=== PATIENT | female | born 2000 | race Caucasian/White ===

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

== ENCOUNTER 2020-08-18 22:18 | Emergency (ER) | payer MEDICAID ==
--- NOTE | 2020-08-19 00:01 | ED Physician Documentation ---
PD HPI FEMALE - Stated complaint Stated Complaint: FEMALE - Chief complaint Chief Complaint: Abd Pain - History obtained from History obtained from: Patient - History of Present Illness Timing - onset: How many days ago (2) Timing - details: Gradual onset, Waxing and waning Pain level max: 7 Associated symptoms: Back pain, Pelvic pain. No: Fever Similar symptoms before: No diagnosis Recently seen: Emergency Dept - Additional information Additional information: patient c/o 2 days of waxing and waning pelvic pain across pelvis anteriorly. she also c/o one week of episodes of urinary incontinence as well as right LBP and numbness that radiates down her RLE. She says she was evaluated in an ED in [place] on 08/08 and again 08/11 for these symptoms (did not have pelvic pain at that time) and w/u including UA, blood tests, and MRI of lower back were unremarkable. She has appointment with local PMD scheduled for this coming Thursday Review of Systems Constitutional: denies: Fever, Chills, Sweats : reports: Incontinent. denies: Dysuria, Frequency, Now EGA Skin: denies: Rash Musculoskeletal: reports: Back pain Neurologic: reports: Numbness (RLE), Headache ("every day" (per patient) for 1-2 weeks). denies: Generalized weakness, Focal weakness PD PAST MEDICAL HISTORY - Past Medical History Past Medical History: Yes [facility]: Ovarian cysts Psych: Depression, Anxiety - Past Surgical History Past Surgical History: Yes General: Appendectomy /[facility]: Oophrectomy - Present Medications Home Medications: Ambulatory Orders Medication Instructions Recorded Confirmed Azithromycin [Zithromax] 250 mg PO DAILY #6 tablet 09/29/15 Buspirone HCl 10 mg PO DAILY 09/29/15 09/29/15 clonazePAM [KlonoPIN] 0.5 mg PO DAILY PRN 09/29/15 09/29/15 Albuterol 2.5 mg INH Q4H PRN #30 neb 10/22/17 Azithromycin [Zithromax] 250 mg PO DAILY #4 tablet 10/22/17 Ibuprofen [Motrin] 800 mg PO Q8H PRN #30 tablet 10/22/17 Mupirocin 1 gm TP BID #22 gm 09/03/19 - Allergies Allergies/Adverse Reactions: Allergies Allergy/AdvReac Type Severity Reaction Status Date / Time Penicillins Allergy Mild Rash Verified 08/18/20 22:22 hydromorphone HCl * AdvReac Mild Anxiety Verified 08/18/20 22:22 [From Dilaudid] acetaminophen AdvReac Nausea Verified 08/18/20 22:21 [From Tylenol-Codeine #3] codeine AdvReac Nausea Verified 08/18/20 22:21 [From Tylenol-Codeine #3] - Social History Does the pt smoke?: No Smoking Status: Never smoker Does the pt drink ETOH?: No Does the pt have substance abuse?: No - Immunizations Immunizations are current?: Yes - POLST Patient has POLST: No PD ED PE NORMAL - Vitals Vital signs reviewed: Yes - General General: Alert and oriented X 3, No acute distress, Well developed/nourished - HEENT HEENT: PERRL, EOMI, Moist mucous membranes - Cardiac Cardiac: RRR, No murmur - Respiratory Respiratory: No respiratory distress, Clear bilaterally - Abdomen Abdomen: Soft, Non tender - Back Back: No CVA TTP, No spinal TTP - Derm Derm: Normal color, No rash - Extremities Extremities: No tenderness to palpate, Normal ROM s pain, No edema - Neuro Neuro: Alert and oriented X 3, 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, No motor deficit, No sensory deficit, Normal speech, Other (2+/4 bilateral patellar DTR without clonus) Eye Opening: Spontaneous Motor: Obeys Commands Verbal: Oriented GCS Score: 15 Results - Vitals Vitals: Oxygen O2 Source Room air - Labs Labs: Laboratory Tests 08/18/20 08/19/20 08/19/20 22:40 00:30 00:30 WBC 9.1 RBC 5.52 H Hgb 14.9 Hct 46.3 MCV 83.9 MCH 27.0 MCHC 32.2 RDW 13.3 Plt Count 280 MPV 11.4 H Neut # (Auto) 4.6 Lymph # (Auto) 3.5 [place] # (Auto) 0.7 Eos # (Auto) 0.1 Baso # (Auto) 0.1 Absolute Nucleated RBC 0.00 Nucleated RBC % 0.0 Sodium 138 Potassium 3.7 Chloride 105 Carbon Dioxide 24 Anion Gap 9.0 BUN 9 Creatinine 0.7 Estimated GFR (MDRD) 108 Glucose 93 Calcium 9.5 Total Bilirubin 0.5 AST 23 ALT 41 Alkaline Phosphatase 52 Total Protein 7.9 Albumin 4.4 Globulin 3.5 Albumin/Globulin Ratio 1.3 Lipase 27 Serum HCG, Qual Urine Color YELLOW Urine Clarity CLEAR Urine pH 7.5 Ur Specific [place] 1.015 Urine Protein NEGATIVE Urine Glucose (UA) NEGATIVE Urine Ketones NEGATIVE Urine Occult Blood TRACE-INTA Urine Nitrite NEGATIVE Urine Bilirubin NEGATIVE Urine Urobilinogen 0.2 (NORMAL) Ur Leukocyte Esterase NEGATIVE Ur Microscopic Review NOT INDICATED Urine Culture Comments NOT INDICATED Urine HCG, Qual NEGATIVE 08/19/20 00:30 WBC RBC Hgb Hct MCV MCH MCHC RDW Plt Count MPV Neut # (Auto) Lymph # (Auto) [place] # (Auto) Eos # (Auto) Baso # (Auto) Absolute Nucleated RBC Nucleated RBC % Sodium Potassium Chloride Carbon Dioxide Anion Gap BUN Creatinine Estimated GFR (MDRD) Glucose Calcium Total Bilirubin AST ALT Alkaline Phosphatase Total Protein Albumin Globulin Albumin/Globulin Ratio Lipase Serum HCG, Qual NEGATIVE Urine Color Urine Clarity Urine pH Ur Specific [place] Urine Protein Urine Glucose (UA) Urine Ketones Urine Occult Blood Urine Nitrite Urine Bilirubin Urine Urobilinogen Ur Leukocyte Esterase Ur Microscopic Review Urine Culture Comments Urine HCG, Qual - Rads (name of study) CT head Radiology: Prelim report reviewed, See rad report CT A/P Radiology: Prelim report reviewed, See rad report PD MEDICAL DECISION MAKING - ED course Complexity details: reviewed results, re-evaluated patient, considered differential, d/w patient Departure - Departure Disposition: 01 Home, Self Care Clinical Impression: Pelvic pain Condition: Good Instructions: ED Pelvic Pain [facility] Follow-Up: Jessica Cross MD [Primary Care Provider] - Discharge Date/Time: 08/19/20 04:50
[2020-08-19 00:36] LABS: BASOPHILS # (AUTO) 0.1 10^3/uL (0.0-0.1); EOSINOPHILS # (AUTO) 0.1 10^3/uL (0.0-0.7); EOSINOPHILS % (AUTO) 1.5 %; HGB - HEMOGLOBIN 14.9 g/dL (12.0-16.0); LYMPHOCYTES # (AUTO) 3.5 10^3/uL (1.5-3.5); LYMPHOCYTES % (AUTO) 38.1 %; MEAN CORPUSCULAR HGB CONC 32.2 g/dL (32.0-36.0); MEAN CORPUSCULAR VOLUME 83.9 fL (81.0-99.0); MEAN PLATELET VOLUME 11.4 fL (7.9-10.8); MONOCYTES # (AUTO) 0.7 10^3/uL (0.0-1.0); MONOCYTES % (AUTO) 7.9 %; NEUTROPHILS # (AUTO) 4.6 10^3/uL (1.5-6.6); NEUTROPHILS % (AUTO) 50.8 %; PLT - PLATELET COUNT 280 10^3/uL (130-450); RED BLOOD COUNT 5.52 10^6/uL (4.20-5.40); RED CELL DISTRIBUTION WIDTH 13.3 % (12.0-15.0); WHITE BLOOD COUNT 9.1 x10^3/uL (4.8-10.8)
[2020-08-19] MEDS ORDERED: IOVERSOL 320 100 ML VIAL IVP ONE ×2 (01:03→03:15)
[2020-08-19 01:06] LABS: ALBUMIN 4.4 g/dL (3.2-5.5); ALBUMIN/GLOBULIN RATIO 1.3 (1.0-2.2); BILIRUBIN,TOTAL 0.5 mg/dL (0.2-1.0); CALCIUM 9.5 mg/dL (8.5-10.3); CREATININE 0.7 mg/dL (0.4-1.0); TOTAL PROTEIN 7.9 g/dL (6.7-8.2)
[2020-08-19 01:28] LABS: HCG,QUALITATIVE BLOOD NEGATIVE
[2020-08-19 04:31] LABS: BILIRUBIN,URINE NEGATIVE (NEGATIVE); CLARITY,URINE CLEAR (CLEAR); GLUCOSE, URINE (UA) NEGATIVE (NEGATIVE); KETONES,URINE (UA) NEGATIVE (NEGATIVE); LEUKOCYTE ESTERASE, URINE NEGATIVE (NEGATIVE); NITRITE,URINE NEGATIVE (NEGATIVE); OCCULT BLOOD,URINE TRACE-INTA (NEGATIVE); PH,URINE 7.5 PH (5.0-7.5); PROTEIN,URINE NEGATIVE (NEGATIVE); UROBILINOGEN,URINE 0.2 (NORMAL) E.U./dL (NORMAL)
[2020-08-19 04:33] LABS: HCG UR QUAL NEGATIVE
[2020-08-19 04:51] VITALS: BP 119/75
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
--- NOTE | 2020-08-19 08:10 | CT Report ---
PROCEDURE: Abdomen/Pelvis W INDICATIONS: pelvic pain CONTRAST: IV CONTRAST: Optiray 320 ml: 100 PO CONTRAST: *NO PO CONTRAST TECHNIQUE: After the administration of IV contrast, 5 mm thick sections acquired from the diaphragms to the symp hysis. 5 mm thick coronal and sagittal reformats were acquired. For radiation dose reduction, the f ollowing was used: automated exposure control, adjustment of mA and/or kV according to patient size. COMPARISON: None. FINDINGS: Image quality: Excellent. ABDOMEN: Lung bases: Lung bases are clear. Heart size is normal. Tiny hiatal hernia. Solid organs: Mild hepatic steatosis. Liver and spleen are normal in size and enhancement. There is a 1.8 cm splenule. Gallbladder is normal. Biliary system is non dilated. Pancreas enhances normall y. No adrenal nodules. Kidneys demonstrate normal size and enhancement, without hydronephrosis. Peritoneum and bowel: Bowel loops demonstrate normal wall thickness and caliber. Moderate amount of stool in colon. Appendix is absent. No free fluid or air. Nodes and vessels: No retroperitoneal or mesenteric adenopathy by size criteria. Aorta and inferior vena cava are normal in size. Miscellaneous: No ventral hernias. PELVIS: Genitourinary: Bladder wall thickness is normal. Miscellaneous: No inguinal hernias or adenopathy. Bones: No suspicious bony lesions. No vertebral body compression fractures. IMPRESSION: No acute abnormalities in abdomen or pelvis. No significant discrepancy with the preliminary interpretation. Reviewed by: Ramone Yates MD on 08/19/2020 8:09 AM PST Approved by: Ramone Yates MD on 08/19/2020 8:09 AM PST Station ID: [id number]
== END 2020-08-19 04:50 | disposition home or self-care (01) ==
LOC: ED 22:18
DX: R10.2 Pelvic and perineal pain (principal); R32 Unspecified urinary incontinence; R51.9 Headache, unspecified; M54.5 Low back pain; R20.0 Anesthesia of skin
CPT/HCPCS: 36415; 70450; 74177; 80053; 81003; 81025; 83690; 84703; 85025; 99284; Q9967; 81001; 87086

== ENCOUNTER 2020-08-21 15:45 | Outpatient (CLI) | payer MEDICAID | END 2020-08-21 23:59 | disposition home or self-care (01) | LOC: LAB.R 15:45 | PROVIDERS: ATTEND Pediatrics | DX: R06.02 Shortness of breath (principal); Z20.828 Contact with and (suspected) exposure to other viral communicable diseases ==

== ENCOUNTER 2020-10-13 13:03 | Outpatient (CLI) | payer MEDICAID ==
[2020-10-13 13:45] LABS: BASOPHILS # (AUTO) 0.1 10^3/uL (0.0-0.1); BASOPHILS % (AUTO) 1.1 %; EOSINOPHILS # (AUTO) 0.1 10^3/uL (0.0-0.7); EOSINOPHILS % (AUTO) 1.4 %; HGB - HEMOGLOBIN 14.5 g/dL (12.0-16.0); LYMPHOCYTES # (AUTO) 2.5 10^3/uL (1.5-3.5); LYMPHOCYTES % (AUTO) 26.7 %; MEAN CORPUSCULAR HEMOGLOBIN 27.3 pg (27.0-31.0); MEAN CORPUSCULAR HGB CONC 32.2 g/dL (32.0-36.0); MEAN CORPUSCULAR VOLUME 84.6 fL (81.0-99.0); MEAN PLATELET VOLUME 11.1 fL (7.9-10.8); MONOCYTES # (AUTO) 0.5 10^3/uL (0.0-1.0); MONOCYTES % (AUTO) 5.9 %; NEUTROPHILS # (AUTO) 5.9 10^3/uL (1.5-6.6); NEUTROPHILS % (AUTO) 64.2 %; PLT - PLATELET COUNT 238 10^3/uL (130-450); RED BLOOD COUNT 5.32 10^6/uL (4.20-5.40); RED CELL DISTRIBUTION WIDTH 13.5 % (12.0-15.0); WHITE BLOOD COUNT 9.2 x10^3/uL (4.8-10.8)
[2020-10-13 14:14] LABS: ALBUMIN 4.1 g/dL (3.2-5.5); ALBUMIN/GLOBULIN RATIO 1.2 (1.0-2.2); ALKALINE PHOSPHATASE 61 IU/L (42-121); ALT ALANINE AMINOTRANSFERASE 56 IU/L (10-60); AST ASPARTATE AMINOTRANSFERASE 42 IU/L (10-42); BILIRUBIN,TOTAL 0.5 mg/dL (0.2-1.0); BUN - BLOOD UREA NITROGEN 9 mg/dL (6-20); CALCIUM 9.5 mg/dL (8.5-10.3); CARBON DIOXIDE - CO2 24 mmol/L (21-32); CHLORIDE 100 mmol/L (101-111); CHOL/HDL RATIO 4.7 (<4.4); CHOLESTEROL 199 mg/dL; CREATININE 0.6 mg/dL (0.4-1.0); GAMMA GLUTAMYL TRANSPEPTIDASE 41 IU/L (8-38); GFR - MDRD 129 (>89); GLUCOSE 115 mg/dL (70-100); HDL CHOLESTEROL 42 mg/dL; LDL CHOLESTEROL,CALCULATED 123 mg/dL; LDL/HDL RATIO 2.9 (<4.4); PHOSPHORUS 3.6 mg/dL (2.5-4.6); POTASSIUM 3.9 mmol/L (3.5-5.0); SODIUM 136 mmol/L (135-145); TOTAL PROTEIN 7.4 g/dL (6.7-8.2); TRIGLYCERIDES 169 mg/dL; URIC ACID 6.1 mg/dL (2.6-7.2); VLDL CHOLESTEROL 34 mg/dL
[2020-10-13 14:22] LABS: T4 (THYROXINE) 9.76 ug/dL (6.09-12.23)
[2020-10-13 14:22] LABS: BILIRUBIN,URINE NEGATIVE (NEGATIVE); GLUCOSE, URINE (UA) NEGATIVE (NEGATIVE); KETONES,URINE (UA) NEGATIVE (NEGATIVE); LEUKOCYTE ESTERASE, URINE NEGATIVE (NEGATIVE); NITRITE,URINE NEGATIVE (NEGATIVE); OCCULT BLOOD,URINE NEGATIVE (NEGATIVE); PROTEIN,URINE NEGATIVE (NEGATIVE); UROBILINOGEN,URINE 0.2 (NORMAL) E.U./dL (NORMAL)
[2020-10-13 14:23] LABS: CLARITY,URINE CLEAR (CLEAR)
[2020-10-13 14:25] LABS: THYROID STIMULATING HORMONE 2.22 uIU/mL (0.34-5.60)
[2020-10-13 14:27] LABS: FREE T3 4.03 pg/mL (2.5-3.9); FREE T4 (FREE THYROXINE) 0.81 ng/dL (0.58-1.64)
[2020-10-13 14:38] LABS: BACTERIA,URINE Moderate /HPF (None Seen); RBC,URINE 0-5 /HPF (0-5); SQUAMOUS EPITHELIAL CELL,UR MOD Squamous (<= Few); WBC,URINE 0-3 /HPF (0-5)
[2020-10-13 22:02] LABS: ESTIMATED AVERAGE GLUCOSE 111 mg/dL (70-100); HEMOGLOBIN A1c% 5.5 % (4.27-6.07)
[2020-10-16 17:52] LABS: THYROID PEROXIDASE ANTIBODIES <1 IU/mL (<9)
== END 2020-10-13 13:04 | disposition home or self-care (01) ==
LOC: LAB 13:03
PROVIDERS: ATTEND Pediatrics
DX: G44.52 New daily persistent headache (NDPH) (principal); N39.498 Other specified urinary incontinence
CPT/HCPCS: 36415; 80053; 80061; 81001; 82977; 83036; 83615; 83721; 84100; 84436; 84439; 84443; 84481; 84550; 85025; 86376; 86800

== ENCOUNTER 2021-09-19 00:30 | Outpatient (CLI) | payer MEDICAID | END 2021-09-19 00:31 | disposition critical access hospital (66) | LOC: EMS 00:30 | DX: Z04.1 Encounter for examination and observation following transport accident (principal); M25.531 Pain in right wrist | CPT/HCPCS: A0425; A0429; A0999 ==

== ENCOUNTER 2021-09-19 00:41 | Emergency (ER) | payer MEDICAID ==
[2021-09-19] MEDS ORDERED: KETOROLAC 30 MG/ML VIAL IM STA (03:56)
[2021-09-19 04:52] VITALS: BP 132/88
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
== END 2021-09-19 04:50 | disposition home or self-care (01) ==
LOC: ED 00:41
DX: S52.224A Nondisplaced transverse fracture of shaft of right ulna, initial encounter for closed fracture (principal); S39.012A Strain of muscle, fascia and tendon of lower back, initial encounter; S00.11XA Contusion of right eyelid and periocular area, initial encounter; M25.551 Pain in right hip; M25.552 Pain in left hip; V43.52XA Car driver injured in collision with other type car in traffic accident, initial encounter; W22.11XA Striking against or struck by driver side automobile airbag, initial encounter; Y92.410 Unspecified street and highway as the place of occurrence of the external cause
CPT/HCPCS: 96372; 99282; 99284

== ENCOUNTER 2021-11-07 10:50 | Outpatient (CLI) | payer MEDICAID ==
--- NOTE | 2021-11-07 14:49 | XRAY Report ---
PROCEDURE: Wrist 3 View RT INDICATIONS: WRIST FRACTURE TECHNIQUE: 3 views of the wrist were acquired. COMPARISON: X-ray of the right wrist, 09/19/2021. X-ray right forearm, 09/19/2021. FINDINGS: Bones: There is an oblique fracture in the distal ulnar shaft with mild displacement and angulation. There is callus formation consistent with healing. No Dislocations. No suspicious bony lesions. Soft tissues: No suspicious soft tissue calcifications. IMPRESSION: Healing distal ulnar shaft fracture. Reviewed by: Ramone Yates MD on 11/07/2021 2:48 PM PST Approved by: Ramone Yates MD on 11/07/2021 2:48 PM [facility] Station ID: [id number]
== END 2021-11-07 10:51 | disposition home or self-care (01) ==
LOC: DI.WOS 10:50
PROVIDERS: ATTEND Orthopaedic Surgery
DX: S52.235D Nondisplaced oblique fracture of shaft of left ulna, subsequent encounter for closed fracture with routine healing (principal)

== ENCOUNTER 2022-01-04 17:39 | Emergency (ER) | payer MEDICAID ==
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
[2022-01-04 18:22] LABS: BASOPHILS # (AUTO) 0.1 10^3/uL (0.0-0.1); BASOPHILS % (AUTO) 1.2 %; EOSINOPHILS # (AUTO) 0.2 10^3/uL (0.0-0.7); HCT - HEMATOCRIT 42.4 % (37.0-47.0); HGB - HEMOGLOBIN 13.4 g/dL (12.0-16.0); LYMPHOCYTES % (AUTO) 39.1 %; MEAN CORPUSCULAR HEMOGLOBIN 25.7 pg (27.0-31.0); MEAN CORPUSCULAR HGB CONC 31.6 g/dL (32.0-36.0); MEAN CORPUSCULAR VOLUME 81.2 fL (81.0-99.0); MEAN PLATELET VOLUME 10.8 fL (7.9-10.8); MONOCYTES # (AUTO) 0.6 10^3/uL (0.0-1.0); MONOCYTES % (AUTO) 7.4 %; NEUTROPHILS # (AUTO) 3.8 10^3/uL (1.5-6.6); PLT - PLATELET COUNT 246 10^3/uL (130-450); RED BLOOD COUNT 5.22 10^6/uL (4.20-5.40); RED CELL DISTRIBUTION WIDTH 14.4 % (12.0-15.0); WHITE BLOOD COUNT 7.7 x10^3/uL (4.8-10.8)
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
[2022-01-04 18:25] LABS: VBG PCO2 34.8 mmHg (41-51); VBG PH 7.419 (7.31-7.41); VBG PO2 61.4 mmHg (25-47)
[2022-01-04 18:26] LABS: VBG BASE EXCESS -1.8 mmol/L (-2 - +2); VBG OXYGEN SATURATION 93.4 % (60-80); VBG TOTAL CO2 23.1 mmol/L (24-29)
[2022-01-04 18:35] LABS: ALBUMIN/GLOBULIN RATIO 1.2 (1.0-2.2); BILIRUBIN,TOTAL 0.4 mg/dL (0.2-1.0); CALCIUM 9.2 mg/dL (8.5-10.3); CREATININE 0.6 mg/dL (0.4-1.0); POTASSIUM 3.8 mmol/L (3.5-5.0); TOTAL PROTEIN 7.4 g/dL (6.7-8.2)
--- NOTE | 2022-01-04 18:41 | XRAY Report ---
PROCEDURE: Chest 2 View X-Ray INDICATIONS: dyspnea TECHNIQUE: 2 view(s) of the chest. COMPARISON: Chest x-ray one view, 09/19/2021. FINDINGS: Surgical changes and devices: None. Lungs and pleura: No pleural effusions or pneumothorax. Lungs are clear. Mediastinum: Mediastinal contours are normal. Heart size is normal. Bones and chest wall: No suspicious bony abnormalities. Soft tissues appear unremarkable. IMPRESSION: No acute cardiopulmonary disease. Reviewed by: Ramone Yates MD on 01/04/2022 6:40 PM PDT Approved by: Ramone Yates MD on 01/04/2022 6:40 PM PDT Station ID: [id number]
[2022-01-04 18:58] LABS: BILIRUBIN,URINE NEGATIVE (NEGATIVE); GLUCOSE, URINE (UA) NEGATIVE (NEGATIVE); KETONES,URINE (UA) NEGATIVE (NEGATIVE); LEUKOCYTE ESTERASE, URINE NEGATIVE (NEGATIVE); NITRITE,URINE NEGATIVE (NEGATIVE); OCCULT BLOOD,URINE NEGATIVE (NEGATIVE); PH,URINE 7.5 PH (5.0-7.5); PROTEIN,URINE NEGATIVE (NEGATIVE); UROBILINOGEN,URINE 0.2 (NORMAL) E.U./dL (NORMAL)
[2022-01-04 19:01] LABS: CLARITY,URINE CLEAR (CLEAR); HCG UR QUAL NEGATIVE
[2022-01-04] MEDS ORDERED: IOVERSOL 320 50 ML VIAL ONE (19:08)
--- NOTE | 2022-01-04 20:11 | Ultrasound Report ---
PROCEDURE: Ext Limited Non Vascular INDICATIONS: B hip soft tissue masses TECHNIQUE: Real-time scanning was performed of the bilateral areas, with image documentation. COMPARISON: None. FINDINGS: There are bilateral fluid collections in the hip regions, seen within what appears to be t he intramuscular fascial planes best seen laterally on the right and anteriorly on the left. The righ t-sided fluid collection measures up to 25.5 x 0.5 x 3.1 x 11.0 cm and within the fluid collection 2 small echogenic foci can be seen, peripherally located, measuring 1.2 x 1.1 x 1.2 cm and 1.1 x 1.1 x 1.2 cm, potentially blood clot or fat collection/lipoma. On the left with fluid collection measures up to 17.3 x 1.3 x 12.9 cm, also with 2 small echogenic pe ripheral foci within the fluid likely adherent to the peripheral margin of the fluid collection, ty uring up to 3.6 x 1.1 x 2.5 cm and 2.5 x 0.5 x 2.4 cm IMPRESSION: Bilateral fluid collections as discussed above near the hip regions, potentially posttra umatic in origin. Please correlate clinically for recent trauma. Small fluid collections may indicate muscular tear as underlying cause. As noted above the echogenic foci at the periphery of each fluid collection is potentially a manifestation of adherent clot or unusual manifestation of lipoma. Reviewed by: Rancho Cortez MD on 01/04/2022 8:10 PM PDT Approved by: Rancho Cortez MD on 01/04/2022 8:10 PM PDT Station ID: [id number]
[2022-01-04] MEDS ORDERED: IOVERSOL 320 50 ML VIAL IVP ONE (21:26)
[2022-01-04] MEDS ORDERED: HYDROmorphone 1 MG/ML CARPUJECT IVP STA (21:56)
--- NOTE | 2022-01-04 22:05 | CT Report ---
PROCEDURE: LOWER EXTREMITY W - LT INDICATIONS: Bilateral leg pain and masses TECHNIQUE: After administration of contrast 3 mm axial sections acquired of the lower abdomen, pelvis, and lower extremities to just above the knee level, with coronal and sagittal reformats. For radiation dose r eduction, the following was used: automated exposure control, adjustment of mA and/or kV according t o patient size. CONTRAST: IV CONTRAST: Optiray 320 ml: 100 PO CONTRAST: *NO PO CONTRAST COMPARISON: Soft tissue ultrasound earlier same day. Please refer to that study and report.. FINDINGS: Image quality: Excellent. Bones: No evidence of trauma or infection. No evidence of neoplasm. Soft tissues: The fluid collections better visualized by ultrasound can be seen by this current CT s sonny, with a significantly lesser detail. They have not changed, showing no evidence of internal i dentifiable masses, or hemorrhage. Note is made of what appears to be a centrally positioned IUD. IMPRESSION: No vascular abnormality is seen. The fluid collections involving the soft tissues at and below the level of the hip regions bilaterally are much better visualized by ultrasound scanning noam n by the current study. Please refer to that examination and report. No mass is found. Please note that follow-up by MR scanning without and with contrast would likely provide additional a natomic detail not available from CT or ultrasound scanning. Follow-up elective MRI may be warranted. Reviewed by: Rancho Cortez MD on 01/04/2022 10:04 PM PDT Approved by: Rancho Cortez MD on 01/04/2022 10:04 PM PDT Station ID: [id number]
[2022-01-04] MEDS ORDERED: MORPHINE 2 MG/ML CARPUJECT IVP STA (22:07)
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
--- NOTE | 2022-01-04 22:12 | CT Report ---
PROCEDURE: ANGIO CHEST W/WO INDICATIONS: Dyspnea, high D-dimer, PE protocol CONTRAST: IV CONTRAST: Optiray 320 ml: 100 PO CONTRAST: *NO PO CONTRAST TECHNIQUE: After the administration of intravenous contrast, 2 mm axial images were acquired from the pulmonary apices to the posterior costophrenic angles during the arterial phase. In addition, 1 mm lung kernel and 5 mm soft tissue kernel reconstructions were performed. 3-dimensional coronal oblique maximum int ensity projection (MIP) reformats, 8 mm axial MIP, and 5 mm coronal and sagittal MPR reformats were t hen performed through the thorax. For radiation dose reduction, the following was used: automated exp osure control, adjustment of mA and/or kV according to patient size. COMPARISON: FINDINGS: Image quality: Excellent. Pulmonary arteries: Pulmonary arteries are normal in size, and demonstrate no intraluminal filling d efects to suggest central pulmonary embolism. Lungs and pleura: Lungs are clear. No pleural effusions or pneumothorax. Central and peripheral ai rways are patent. Mediastinum: Heart size is normal, without pericardial effusion. No mediastinal or hilar adenopathy . The thymic tissue is mildly prominent in this patient but a thymic neoplasm is not suspected based on the morphology and young age. Thoracic aorta is normal in caliber and enhancement. Esophagus is normal in caliber, without hiatal hernia. Bones and chest wall: No suspicious bony lesions. Ribs and thoracic spine appear intact throughout. No axillary or supraclavicular adenopathy. The thyroid is normal in size and there are no incident al findings. Abdomen: Visualized upper abdominal solid organs appear normal in the early arterial phase of enhanc ement. IMPRESSION: No pulmonary embolus seen. Mild prominence of the thymic tissue at the midline of the anterior medias tinum, without mass lesion is suspected. CLINICAL RECOMMENDATION STATEMENTS: In patients <35 years with an ITN detected on CT, MRI, or extrathyroidal ultrasound, the Committee re commends further evaluation with dedicated thyroid ultrasound if the nodule is "e1 cm and has no susp icious imaging features, and if the patient has normal life expectancy. In patients "e35 years with an ITN detected on CT, MRI, or extrathyroidal ultrasound, the Committee r ecommends further evaluation with dedicated thyroid ultrasound if the nodule is "e1.5 cm and has no s uspicious imaging features, and if the patient has normal life expectancy. (ACR, 2014) Reviewed by: Rancho Cortez MD on 01/04/2022 10:10 PM PDT Approved by: Rancho Cortez MD on 01/04/2022 10:10 PM PDT Station ID: [id number]
[2022-01-04 22:26] VITALS: BP 92/71
--- NOTE | 2022-01-04 23:40 | ED Physician Documentation ---
ED Addendum - Addendum Addendum: 01/05/22 06:30 Patient received a signout from off going physician, please see their d ocumentation for further detail. Patient received with imaging of her chest and lower extremities pending. Imaging obtained does demonstrate fluid collection consistent with hematoma associated with the bilateral lower thighs. Examination of the patient does demonstrate palpable hematoma without erythema or rubor that would be concerning for acute infection. The remainder the patient's labs are all benign. She is not currently on blood thinners and there is nothing in her history to suggest bleeding diathesis. Of note the CT scan of her chest did demonstrate a hyperdensity to her thyroid and this information was communicated with her directly in the emergency department and she was encouraged to follow-up carefully with primary care concerning this issue. She was offered medication for pain control at home but stated that she intends to use only Motrin and Tylenol and declined prescription medications because she has been intolerant to them in the past. At this time I will discharge for follow-up with her primary care team. Otherwise clear return precautions and follow-up instructions given prior to discharge.
== END 2022-01-04 23:47 | disposition home or self-care (01) ==
LOC: ED 17:39
DX: R06.02 Shortness of breath (principal); S70.02XA Contusion of left hip, initial encounter; S70.01XA Contusion of right hip, initial encounter; V89.2XXA Person injured in unspecified motor-vehicle accident, traffic, initial encounter; R93.89 Abnormal findings on diagnostic imaging of other specified body structures
CPT/HCPCS: 36415; 80053; 81001; 81003; 81025; 82803; 85025; 85379; 87086; 96374; 99282

== ENCOUNTER 2022-01-29 13:11 | Outpatient (CLI) | payer MEDICAID ==
--- NOTE | 2022-01-29 16:33 | MRI Report ---
PROCEDURE: Forearm LT W/O INDICATIONS: LEFT FOREARM PAIN TECHNIQUE: Noncontrast coronal and sagittal T1 spin echo and STIR; axial T1 spin echo and T2 fast spin echo with fat saturation through the left forearm. COMPARISON: None. FINDINGS: Image quality: Excellent. Bones: Fiducial marker is placed over radial aspect of proximal forearm. The visualized bone marrow demonstrates normal signal on all sequences. The overlying cortex appears intact. No fractures line s or intra-osseous lesions. Soft tissues: The scanned muscles demonstrate normal overall bulk and internal signal. No discrete s oft tissue mass is seen. There is nonspecific deep soft tissue edema in proximal forearm near patient 's reported area of pain. IMPRESSION: 1. Nonspecific deep soft tissue edema involving radial aspect of proximal forearm at patient's report ed area of pain. No discrete soft tissue mass or fluid collection is noted. 2. No signal abnormality is seen in forearm muscles and tendons. 3. No marrow signal abnormality. No fracture or dislocation. No suspicious intraosseous lesion. Reviewed by: Xavi Bansal MD on 01/29/2022 4:32 PM PDT Approved by: Xavi Bansal MD on 01/29/2022 4:32 PM PDT Station ID: [id number]
== END 2022-01-29 13:12 | disposition home or self-care (01) ==
LOC: DI 13:11
PROVIDERS: ATTEND Orthopaedic Surgery
DX: M79.632 Pain in left forearm (principal); R93.6 Abnormal findings on diagnostic imaging of limbs; R93.89 Abnormal findings on diagnostic imaging of other specified body structures

== ENCOUNTER 2022-03-11 13:04 | Outpatient (CLI) | payer MEDICAID ==
--- NOTE | 2022-03-12 09:04 | Ultrasound Report ---
LIMITED ULTRASOUND OF LEFT BREAST: 03/11/2022 CLINICAL: Palpable left breast lump. No prior exams were available for comparison. Color flow ultrasound of the left breast 11 o'clock region was performed on the areas of interest. Ferrer scale images of the real-time examination were reviewed. There is a 1.7 cm x 1.3 cm x 2.6 cm irregular cyst in the left breast at 11 o'clock middle depth. Th is irregular cyst is anechoic with posterior acoustic enhancement. This correlates as palpated. IMPRESSION: BENIGN There is no sonographic evidence of malignancy. The 1.7 cm x 1.3 cm x 2.6 cm simple cyst in the left breast is benign. This exam was interpreted at Station ID: [id number]. Electronically Signed By: Jazmin Guerrero M.D. lk/:03/11/2022 17:21:24 Ultrasound BI-RADS: 2 Benign BI-RADS CATEGORY: (2) - 2 Unspecified - other recall n/a LATERALITY: (B)
== END 2022-03-11 13:05 | disposition home or self-care (01) ==
LOC: DI 13:04
PROVIDERS: ATTEND Pediatrics
DX: N60.02 Solitary cyst of left breast (principal)

== ENCOUNTER 2022-03-11 13:06 | Outpatient (CLI) | payer MEDICAID ==
--- NOTE | 2022-03-11 17:22 | Ultrasound Report ---
PROCEDURE: Head or Neck Soft Tissue INDICATIONS: THYROID NODULE TECHNIQUE: Real-time scanning was performed of the thyroid gland, with image documentation. COMPARISON: CT chest 01/04/2022 FINDINGS: Right: Thyroid lobe measures 5.6 x 1.5 x 1.5 cm, and is heterogeneous in echotexture. Left: Thyroid lobe measures 4.5 x 1.1 x 1.4 cm, and is heterogeneous in echotexture. Isthmus: 4 mm thick. IMPRESSION: Heterogeneous thyroid mildly enlarged without focal mass. Reviewed by: Betty Rothman MD on 03/11/2022 5:21 PM PDT Approved by: Betty Rothman MD on 03/11/2022 5:21 PM PDT Station ID: [id number]
== END 2022-03-11 13:07 | disposition home or self-care (01) ==
LOC: DI 13:06
PROVIDERS: ATTEND Pediatrics
DX: E01.0 Iodine-deficiency related diffuse (endemic) goiter (principal); N60.02 Solitary cyst of left breast

== ENCOUNTER 2022-09-01 21:17 | Emergency (ER) | payer MEDICAID ==
[2022-09-01 21:25] VITALS: BP 144/82
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
== END 2022-09-01 22:31 | disposition home or self-care (01) ==
LOC: ED 21:17
DX: G89.18 Other acute postprocedural pain (principal)
CPT/HCPCS: 99281; 99282

== ENCOUNTER 2023-02-14 17:35 | Emergency (ER) | payer OTHER, MEDICAID ==
[2023-02-14 17:47] VITALS: BP 135/73
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
--- NOTE | 2023-02-14 18:46 | CT Report ---
PROCEDURE: PELVIS WO INDICATIONS: fall onto right pelvis; pain SI/lateral pelvis TECHNIQUE: Noncontrast 3 mm axial sections acquired through the bony pelvis, with coronal and sagittal reformatt ing. For radiation dose reduction, the following was used: automated exposure control, adjustment of mA and/or kV according to patient size. COMPARISON: CT of bilateral lower extremities dated 01/04/2022. FINDINGS: Image quality: Excellent. Bones: Pelvic ring is intact. No acute pelvic fracture or dislocation. No suspicious bony lesions. M ild bilateral sacroiliac joint space narrowing with small amount of intra-articular air consistent wi th changes secondary to osteoarthritis. No bony erosion or ankylosis is noted. No evidence of avascul ar necrosis of femoral head. Well-corticated fragment is noted lateral to left transverse process of L5 suggestive of remote healed injury. Soft tissues: There is no pelvic free fluid of free air. No abnormal bowel wall thickening or mesent erasmo fat stranding. Intrauterine device is seen within central endometrium. Bladder wall thickness is normal. No pelvic lymphadenopathy by size criteria. No soft tissue mass or drainable fluid collectio n. IMPRESSION: 1. Suggestion of mild bilateral sacroiliitis. No bony erosion or ankylosis is seen. 2. Suggestion of remote injury involving left transverse process of L5 with well-corticated fragment. No acute pelvic fracture or dislocation. 3. No pelvic free fluid of free air. No gross pelvic soft tissue abnormalities. Reviewed by: Xavi Bansal MD on 02/14/2023 6:45 PM PDT Approved by: Xavi Bansal MD on 02/14/2023 6:45 PM PDT Station ID: [id number]
== END 2023-02-14 19:06 | disposition home or self-care (01) ==
LOC: ED 17:35
DX: S30.0XXA Contusion of lower back and pelvis, initial encounter (principal); W01.10XA Fall on same level from slipping, tripping and stumbling with subsequent striking against unspecified object, initial encounter; Y92.512 Supermarket, store or market as the place of occurrence of the external cause; Y99.0 Civilian activity done for income or pay
CPT/HCPCS: 1040M; 72192; 99284

== ENCOUNTER 2023-04-29 08:11 | Emergency (ER) | payer MEDICAID ==
[2023-04-29 08:28] VITALS: O2SAT 99
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
[2023-04-29 09:13] LABS: BASOPHILS # (AUTO) 0.1 10^3/uL (0.0-0.1); BASOPHILS % (AUTO) 1.2 %; EOSINOPHILS # (AUTO) 0.2 10^3/uL (0.0-0.7); EOSINOPHILS % (AUTO) 1.8 %; HCT - HEMATOCRIT 44.7 % (37.0-47.0); HGB - HEMOGLOBIN 14.7 g/dL (12.0-16.0); LYMPHOCYTES # (AUTO) 2.3 10^3/uL (1.5-3.5); LYMPHOCYTES % (AUTO) 27.9 %; MEAN CORPUSCULAR HEMOGLOBIN 27.8 pg (27.0-31.0); MEAN CORPUSCULAR HGB CONC 32.9 g/dL (32.0-36.0); MEAN CORPUSCULAR VOLUME 84.7 fL (81.0-99.0); MEAN PLATELET VOLUME 11.9 fL (7.9-10.8); MONOCYTES # (AUTO) 0.5 10^3/uL (0.0-1.0); MONOCYTES % (AUTO) 5.8 %; NEUTROPHILS # (AUTO) 5.2 10^3/uL (1.5-6.6); NEUTROPHILS % (AUTO) 62.9 %; PLT - PLATELET COUNT 224 10^3/uL (130-450); RED BLOOD COUNT 5.28 10^6/uL (4.20-5.40); RED CELL DISTRIBUTION WIDTH 13.7 % (12.0-15.0); WHITE BLOOD COUNT 8.3 x10^3/uL (4.8-10.8)
[2023-04-29 09:47] LABS: ALBUMIN 4.7 g/dL (3.2-5.5); ALBUMIN/GLOBULIN RATIO 1.4 (1.0-2.2); BILIRUBIN,TOTAL 0.6 mg/dL (0.2-1.0); CALCIUM 9.8 mg/dL (8.5-10.3); CREATININE 0.8 mg/dL (0.6-1.3); POTASSIUM 3.8 mmol/L (3.5-4.5)
--- NOTE | 2023-04-29 11:33 | Ultrasound Report ---
PROCEDURE: Pelvic w/Transvag+Doppler Comp INDICATIONS: pelvic pain, R TECHNIQUE: Real-time scanning was performed of the pelvic organs, with image documentation. Additional endovagi nal scanning was necessary due to incomplete visualization of the adnexal and endometrial structures by transabdominal scanning. Doppler interrogation was performed of the ovaries bilaterally. COMPARISON: None. FINDINGS: Uterus: Uterus is anteverted and normal in size at 7.2 x 4.7 x 3.4 cm. The myometrium is homogeneou s. The endometrium measures 3.2 mm in combined thickness. IUD appears to be ectopically located in the lower uterine segment. Ovaries: The right ovary measures 3.5 x 1.7 x 2.2 cm, with a calculated ovarian volume of 6.7 cc. T he left ovary measures 2.6 x 1.9 x 1.4 cm, with a calculated ovarian volume of 3.6 cc. Appropriate b lood flow to the ovaries with Doppler interrogation. Less than 12 follicles can be seen in each ova ry. No adnexal masses are seen. No cystic lesions measuring greater than 3 cm. Right ovarian cyst wi th internal debris measuring 1.4 x 1.1 x 1.0 cm incidentally noted. Other: No pathologic free abdominal or pelvic fluid. IMPRESSION: 1. IUD appears ectopically located in the lower uterine segment. 2. No other significant findings. Reviewed by: Boyd León MD on 04/29/2023 11:31 AM PDT Approved by: Boyd León MD on 04/29/2023 11:31 AM PDT Station ID: [id number]
[2023-04-29 12:01] VITALS: BP 129/67
== END 2023-04-29 12:32 | disposition home or self-care (01) ==
LOC: ED 08:11
DX: N83.201 Unspecified ovarian cyst, right side (principal)
CPT/HCPCS: 36415; 80053; 83690; 85025; 93975; 99282; 99284

== ENCOUNTER 2023-08-07 18:47 | Emergency (ER) | payer MEDICAID ==
[2023-08-07 19:08] VITALS: O2SAT 100
[2023-08-07] MEDS ORDERED: IBUPROFEN 800 MG TABLET PO STA (19:24)
--- NOTE | 2023-08-07 19:26 | ED Physician Documentation ---
PD HPI UPPER EXT INJURY - Stated complaint Stated Complaint: RT ARM PX - Chief complaint Chief Complaint: Ext Problem - History obtained from History obtained from: Patient - History of Present Illness Location: Right - Additonal information Additional information: Had a right ulna fracture about a year and a half ago. Over the last few days without specific injury has developed increased pain in the right ulna area. 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: Oophrectomy - Present Medications Home Medications: Ambulatory Orders Medication Instructions Recorded Confirmed Ibuprofen [Motrin] 800 mg PO Q8H PRN #30 tablet 08/07/23 - Allergies Allergies/Adverse Reactions: Allergies Allergy/AdvReac Type Severity Reaction Status Date / Time Penicillins Allergy Mild Rash Verified 02/14/23 17:39 hydromorphone HCl * AdvReac Mild Anxiety Verified 02/14/23 17:39 [From Dilaudid] acetaminophen AdvReac Nausea Verified 02/14/23 17:39 [From Tylenol-Codeine #3] codeine AdvReac Nausea Verified 02/14/23 17:39 [From Tylenol-Codeine #3] - Social History Does the pt smoke?: No Smoking Status: Never smoker Does the pt drink ETOH?: No Does the pt have substance abuse?: No - Immunizations Immunizations are current?: Yes - POLST Patient has POLST: No PD ED PE NORMAL - Vitals Vital signs reviewed: Yes - General General: Alert and oriented X 3, No acute distress - HEENT HEENT: PERRL, EOMI - Neck Neck: Supple, no meningeal sign, No bony TTP - Extremities Extremities: Other (There is a well-healed incision over the medial distal forearm over the ulna. Very mild tenderness to the proximal part of it. No warmth or redness. No pain with inversion, eversion, or flexion or extension at the wrist.) - Neuro Neuro: Alert and oriented X 3, Normal speech Results - Vitals Vitals: Vital Signs - 24 hr 08/07/23 19:02 Temperature 36.5 C Heart Rate 70 Respiratory 20 Rate O2 Saturation 100 Oxygen O2 Source Room air - Rads (name of study) R fa XR Relevant Findings:: Final report received, EMP independent interpretation of test PD Medical Decision Making - ED course ED course: Right forearm x-ray showing bridging callus and plate screw fixation in place. Radiologist wondered if cross-sectional imaging or bone scan would be necessary, given the time course and when the fracture was they do not think that is necessary. Departure - Departure Disposition: 01 Home, Self Care Clinical Impression: Right wrist pain Condition: Good Record reviewed to determine appropriate education?: Yes Follow-Up: [facility] [Provider Group] Prescriptions: Ibuprofen [Motrin] 800 mg PO Q8H PRN #30 tablet PRN Reason: PAIN &/OR FEVER Comments: Certainly could be the hardware that is bothering you. There is no sign of anything serious or emergent at this time. I am prescribing a anti-inflammatory and you can wear the splint as needed. If it continues to bother you reasonable to follow-up with an orthopedist for evaluation. Forms: PCP List Discharge Date/Time: 08/07/23 20:05
--- NOTE | 2023-08-07 19:47 | XRAY Report ---
PROCEDURE: Forearm RT INDICATIONS: Pain TECHNIQUE: 2 views of the forearm were acquired. COMPARISON: None. FINDINGS: Bones: Plate/screw fixation is seen in the distal ulna, at site of prior fracture. Cortical irregular ity with bridging indicates healing, with only minimal lucency where the fracture was. Soft tissues: No suspicious calcifications. IMPRESSION: Minimal lucency at the site of prior distal ulnar fracture. There is bridging callus indicating heali ng. Plate/screw fixation in place. Consider cross-sectional imaging or nuclear medicine bone scan to further evaluate if there is sufficient clinical concern. Reviewed by: Brian Hunter MD on 08/07/2023 7:45 PM PST Approved by: Brian Hunter MD on 08/07/2023 7:45 PM PST Station ID: [id number]
== END 2023-08-07 20:05 | disposition home or self-care (01) ==
LOC: ED 18:47
DX: M25.531 Pain in right wrist (principal)
CPT/HCPCS: 73090; 99283; 99284; A9270

== ENCOUNTER 2024-02-03 11:09 | Emergency (ER) | payer MEDICAID ==
[2024-02-03 11:42] LABS: BILIRUBIN,URINE NEGATIVE (NEGATIVE); GLUCOSE, URINE (UA) NEGATIVE (NEGATIVE); KETONES,URINE (UA) NEGATIVE (NEGATIVE); LEUKOCYTE ESTERASE, URINE NEGATIVE (NEGATIVE); NITRITE,URINE NEGATIVE (NEGATIVE); OCCULT BLOOD,URINE SMALL (NEGATIVE); PH,URINE 8.5 PH (5.0-7.5); PROTEIN,URINE NEGATIVE (NEGATIVE); UROBILINOGEN,URINE 0.2 (NORMAL) E.U./dL (NORMAL)
[2024-02-03 11:48] LABS: CLARITY,URINE CLEAR (CLEAR); HCG UR QUAL NEGATIVE
[2024-02-03 11:52] LABS: BASOPHILS # (AUTO) 0.1 10^3/uL (0.0-0.1); EOSINOPHILS # (AUTO) 0.2 10^3/uL (0.0-0.7); EOSINOPHILS % (AUTO) 1.7 %; HCT - HEMATOCRIT 46.8 % (37.0-47.0); HGB - HEMOGLOBIN 14.7 g/dL (12.0-16.0); LYMPHOCYTES # (AUTO) 2.6 10^3/uL (1.5-3.5); LYMPHOCYTES % (AUTO) 25.5 %; MEAN CORPUSCULAR HEMOGLOBIN 27.3 pg (27.0-31.0); MEAN CORPUSCULAR HGB CONC 31.4 g/dL (32.0-36.0); MEAN PLATELET VOLUME 11.5 fL (7.9-10.8); MONOCYTES # (AUTO) 0.6 10^3/uL (0.0-1.0); MONOCYTES % (AUTO) 6.1 %; NEUTROPHILS # (AUTO) 6.7 10^3/uL (1.5-6.6); PLT - PLATELET COUNT 247 10^3/uL (130-450); RED BLOOD COUNT 5.38 10^6/uL (4.20-5.40); RED CELL DISTRIBUTION WIDTH 13.6 % (12.0-15.0); WHITE BLOOD COUNT 10.2 x10^3/uL (4.8-10.8)
[2024-02-03 12:07] LABS: ALBUMIN 4.5 g/dL (3.2-5.5); ALBUMIN/GLOBULIN RATIO 1.7 (1.0-2.2); BILIRUBIN,TOTAL 0.4 mg/dL (0.2-1.0); CALCIUM 9.7 mg/dL (8.5-10.3); CREATININE 0.9 mg/dL (0.6-1.3); POTASSIUM 4.2 mmol/L (3.5-4.5); TOTAL PROTEIN 7.2 g/dL (6.4-8.9)
[2024-02-03 12:19] LABS: BACTERIA,URINE Rare /HPF (None Seen); RBC,URINE 0-5 /HPF (0-5); SQUAMOUS EPITHELIAL CELL,UR FEW Squamous (<= Few); WBC,URINE 0-3 /HPF (0-5)
--- NOTE | 2024-02-03 12:30 | ED Physician Documentation ---
PD HPI ABD PAIN - Stated complaint Stated Complaint: ABD PX,CRAMPING,NAUSEA - Chief complaint Chief Complaint: Abd Pain - Additional information Additional information: 23-year-old female no pertinent past medical history presents emergency department for pelvic pain. Patient does have an IUD but she is concerned she could possibly be . Last menses was in November but says that she does not get her period regularly so unsure when she is next due for her menses. She started experiencing pelvic pain last night and it has not alleviated she denies any use of Tylenol ibuprofen for pain and declines any Tylenol or Profen for pain while she is here. No nausea vomiting fevers or chills. PD PAST MEDICAL HISTORY - Past Medical History Past Medical History: Yes Cardiovascular: None Respiratory: None Neuro: None Endocrine/Autoimmune: None GI: None BURNER SHAFT: Ovarian cysts : None HEENT: None Psych: Depression, Anxiety Musculoskeletal: Other Derm: None - Past Surgical History Past Surgical History: Yes General: Appendectomy /BURNER SHAFT: Oophrectomy - Present Medications Home Medications: Ambulatory Orders Medication Instructions Recorded Confirmed No Known Home Medications 02/03/24 02/03/24 - Allergies Allergies/Adverse Reactions: Allergies Allergy/AdvReac Type Severity Reaction Status Date / Time Penicillins Allergy Mild Rash Verified 02/03/24 11:14 hydromorphone HCl * AdvReac Mild Anxiety Verified 02/03/24 11:14 [From Dilaudid] acetaminophen AdvReac Nausea Verified 02/03/24 11:14 [From Tylenol-Codeine #3] codeine AdvReac Nausea Verified 02/03/24 11:14 [From Tylenol-Codeine #3] - Social History Does the pt smoke?: No Smoking Status: Never smoker Does the pt drink ETOH?: Yes Does the pt have substance abuse?: Yes Substance Use and Type: Marijuana - Immunizations Immunizations are current?: Yes - POLST Patient has POLST: No PD ED PE NORMAL - Vitals Vital signs reviewed: Yes - General General: Alert and oriented X 3 - Abdomen Abdomen: Soft, Other (pelvic tenderness) - Back Back: No CVA TTP - Derm Derm: Normal color, No rash - Psych Psych: Normal mood PD ED PE EXPANDED - Female Female : Normal external, Vaginal Bleeding (dark bloody vaginsal discharge), Manufacturing Area Manager present (Dorothy ARREGUIN present), Other (Unable to visualize IUD string). No: Skin lesions, CMT, Dilated cervix Results - Vitals Vitals: Vital Signs - 24 hr 02/03/24 02/03/24 02/03/24 11:15 12:57 15:11 Temperature 36.5 C 36 C L Heart Rate 68 65 61 Respiratory 18 16 16 Rate Blood Pressure 143/64 H 100/69 125/64 O2 Saturation 98 97 1 L Oxygen O2 Source Room air - Labs Labs: Laboratory Tests 02/03/24 02/03/24 02/03/24 11:29 11:43 11:43 WBC 10.2 RBC 5.38 Hgb 14.7 Hct 46.8 MCV 87.0 MCH 27.3 MCHC 31.4 L RDW 13.6 Plt Count 247 MPV 11.5 H Neut # (Auto) 6.7 H Lymph # (Auto) 2.6 [place] # (Auto) 0.6 Eos # (Auto) 0.2 Baso # (Auto) 0.1 Absolute Nucleated RBC 0.00 Nucleated RBC % 0.0 Sodium 139 Potassium 4.2 Chloride 106 Carbon Dioxide 26 Anion Gap 7.0 BUN 10 Creatinine 0.9 Estimated GFR (MDRD) 78 L Glucose 99 Calcium 9.7 Total Bilirubin 0.4 AST 14 ALT 22 Alkaline Phosphatase 52 Total Protein 7.2 Albumin 4.5 Globulin 2.7 Albumin/Globulin Ratio 1.7 Lipase 19 Urine Color YELLOW Urine Clarity CLEAR Urine pH 8.5 H Ur Specific Ace 1.020 Urine Protein NEGATIVE Urine Glucose (UA) NEGATIVE Urine Ketones NEGATIVE Urine Occult Blood SMALL H Urine Nitrite NEGATIVE Urine Bilirubin NEGATIVE Urine Urobilinogen 0.2 (NORMAL) Ur Leukocyte Esterase NEGATIVE Urine RBC 0-5 Urine WBC 0-3 Ur Squamous Epith Cells FEW Squamous Urine Bacteria Rare Ur Microscopic Review INDICATED Urine Culture Comments NOT INDICATED Urine HCG, Qual NEGATIVE - Rads (name of study) Pelvic ultrasound Relevant Findings:: Final report received, EMP independent interpretation of test, Other (Ectopic location of IUD in lower uterine segment and cervix) PD Medical Decision Making - ED course ED course: 23-year-old female presents emergency department for pelvic pain differentials include but are not limited to ectopic , , UTI, ovarian cyst. Labs and urinalysis were complete. She has no leukocytosis making less concerned or suspicious for possible infection no leukocytosis. No electrolyte abnormalities. Urinalysis does not show any leukocytes or nitrites making me less suspicious for possible UTI. Pelvic ultrasound was complete and it revealed that patient does have an ectopic location of IUD in lower uterine segment and cervix. I attempted to remove her IUD with RODRÍGUEZ De La Cruz at bedside chaperoning and supporting. Unfortunately I was unable to visualize the IUD string to remove. I spoke with on-call DIGITAL PERFORMANCE ANALYST Dr. Cabello greatly appreciate her support and she is able to see patient in her clinic outpatient and will remove IUD with additional tools that we do not have here in the emergency department. Patient will walk over to clinic she is aware where to go and Dr. Cabello will be anticipating her arrival all questions answered return precautions given patient is safe for discharge. Departure - Departure Disposition: 01 Home, Self Care Clinical Impression: IUD complication Instructions: Control Options, Control IUD Comments: Thank you for trusting us with your care. We have completed an ultrasound and it does appear that your IUD is not in the correct anatomical position. Because of this we attempted to remove it here in the emergency department but because I was unable to visualize the string I think would benefit from seeing DIGITAL PERFORMANCE ANALYST outpatient to have your IUD removed. Please present to their office they are waiting for you and are aware that you are coming. Keep in mind now that your IUD is out you could become So use other alternative forms of control if this is something you are currently trying to prevent. Forms: PCP List Discharge Date/Time: 02/03/24 15:33
--- NOTE | 2024-02-03 13:51 | Ultrasound Report ---
PROCEDURE: Pelvic Complete INDICATIONS: pelvic pain TECHNIQUE: Real-time transabdominal scanning was performed of the pelvic organs, with image documentation. COMPARISON: CT pelvis dated 02/14/2023 FINDINGS: Uterus: Uterus is anteverted and normal in size at 7.2 x 4.7 x 3.4 cm. The myometrium is homogeneou s. The endometrium measures 3.2 mm in combined thickness. IUD is ectopically located in the lower u terine segment and cervix Ovaries: The right ovary measures 3.5 x 1.7 x 2.2 cm, with a calculated ovarian volume of 6.7 cc. T he left ovary measures 2.6 x 1.9 x 1.4 cm, with a calculated ovarian volume of 6 cc. The ovaries hav e a normal sonographic appearance. Less than 12 follicles can be seen in each ovary. No adnexal mas ses are seen. No cystic lesions measuring greater than 3 cm. Other: No free pelvic fluid. IMPRESSION: 1. Ectopic location of IUD in lower uterine segment and cervix. 2. Otherwise unremarkable study. Reviewed by: Boyd León MD on 02/03/2024 1:50 PM PDT Approved by: Boyd León MD on 02/03/2024 1:50 PM PDT Station ID: [id number]
[2024-02-03 15:17] VITALS: BP 125/64; O2SAT 1
== END 2024-02-03 15:33 | disposition home or self-care (01) ==
LOC: ED 11:09
DX: T83.32XA Displacement of intrauterine contraceptive device, initial encounter (principal); R10.2 Pelvic and perineal pain
CPT/HCPCS: 36415; 80053; 81001; 81003; 81025; 83690; 85025; 87086; 99283; 99284